=== PATIENT | male | born 1990 | race Two or more races ===

== ENCOUNTER 2019-05-09 15:26 | Emergency (ER) | payer SELFPAY ==
[~2019-05-09] VITALS: Ht 182.9 cm; Wt 79.4 kg
[2019-05-09] MEDS ORDERED: UNOBMED (15:30)
[2019-05-09] MEDS ORDERED: DiphenhydrAMINE 50mg/ml Inj IVP ONE (15:30)
[2019-05-09] MEDS ORDERED: LORazepam Inj 2mg/ml 1ml IV ONE (15:30)
--- NOTE | 2019-05-09 15:30 | NUR ---
ED Nurse Note: Patient brought in by ambulance from [facility], per EMS patient was found in [employer] store, patient sniffed powder of crystal meth, and unknown powder and THC. upon arrival patient is alert awake x3, name, place, purpose, ambulatory steady gait, breathig unlabored and even, patient placed on a hospital gown and equipment monitor phototypesetting, patient sinus tach noted. patient at this time reports that he is "claustrophobic" and "too much patients and beeping sound" in the ED, patient reports he wants to leave. Dr. Ballard notified.
--- NOTE | 2019-05-09 15:35 | NUR ---
ED Nurse Note: DR. Ballard by the bedside assessing patient.
--- NOTE | 2019-05-09 15:37 | Emergency Room Report ---
History of Present Illness General Chief Complaint: Substance Abuse Source: Patient, EMS Present Illness HPI 28-year-old male history of polysubstance abuse history of methamphetamine abuse comes in for feeling tired after methamphetamine use, severity is moderate , constant symptoms are aggravated by meth use, alleviated by not utilizing meth , he denies any chest pain or shortness of breath patient presents for evaluation Allergies: Coded Allergies: UNABLE TO ASSESS (Unverified , 05/09/19) PT IS CONFUSED Patient History Past Medical History: see triage record Reviewed Nursing Documentation: PMH: Agreed; PSxH: Agreed Review of Systems All Other Systems: negative except mentioned in HPI Physical Exam Vital Signs Date Time Temp Pulse Resp B/P (MAP) Pulse Ox O2 Delivery O2 Flow Rate FiO2 05/09/19 15:22 97 05/09/19 15:22 98.1 128 17 142/94 (110) Room Air Sp02 EP Interpretation: reviewed, normal General Appearance: well appearing, no apparent distress, alert Head: normocephalic, atraumatic Eyes: bilateral eye PERRL, bilateral eye EOMI ENT: uvula midline, moist mucus membranes Neck: supple, thyroid normal, supple/symm/no masses Respiratory: lungs clear, no respiratory distress, no retraction, no accessory muscle use Cardiovascular #1: normal peripheral pulses, no edema, no gallop, no murmur, tachycardia Gastrointestinal: non tender, soft, no guarding, no rebound Musculoskeletal: normal inspection Neurologic: alert, oriented x3 Psychiatric: anxious Skin: no rash, warm/dry Medical Decision Making Diagnostic Impression: Primary Impression: Substance abuse Additional Impression: Methamphetamine abuse ER Course Patient presents with methamphetamine use, tachycardia, patient is back to baseline The patient has requested to leave the ED against medical advice. The patient reason(s) for leaving include, but are not limited to, the following: did not give a reason. I believe this patient is of sound mind and competent to refuse medical care. The patient is responding and asking questions appropriately. The patient is oriented to person, place and time. The patient is not psychotic, delusional, suicidal, homicidal or hallucinating. The patient demonstrates a normal mental capacity to make decisions regarding their healthcare. The patient is clinically sober and does not appear to be under the influence of any illicit drugs at this time. The patient has been advised of the risks, in layman terms, of leaving AMA which include, but are not limited to , coma, permanent disability, loss of current lifestyle, delay in diagnosis. Alternatives have been offered - the patient remains steadfast in their wish to leave. The patient has been advised that should they change their mind they are welcome to return to this hospital, or any other, at any time. The patient understands that in no way does an AMA discharge mean that I do not want them to have the best medical care available. To this end, I have provided appropriate prescriptions, referrals, and discharge instructions. The patient did sign AMA paperwork. The above discussion was witnessed by another member of staff. Last Vital Signs Date Time Temp Pulse Resp B/P (MAP) Pulse Ox O2 Delivery O2 Flow Rate FiO2 05/09/19 15:22 98.1 128 17 142/94 (110) 95 Room Air Disposition: AGAINST MEDICAL ADVICE Condition: Stable Referrals: [facility] Patient Instructions: Stimulant Use Disorder-Methamphetamines Additional Instructions: The patient was provided with discharge instructions, notified to follow-up with a primary care doctor and or specialist in the next 24-48 hours, and to return to the ED if they have worsening of their symptoms. Please note that this report is being documented using [employer] technology. This can lead to erroneous entry secondary to incorrect interpretation by the dictating instrument. Mitch Ballard MD May 09, 2019 15:37
[2019-05-09 15:45] VITALS: BP 156/99
--- NOTE | 2019-05-09 15:45 | NUR ---
AMA: SEE AMA FORM. patient signed AMA form despite RN and MD explanation of the risk of leaving hospital against medical advice, patient insisted to leave hospital and signed AMA paper. RN/MD offered patient different bed/room in the mean time, but patient declined and left. patient declined to give urine sample, patient declined IV access and blood work. patient ambulated out of ED steady gait with all of his belongings.
== END 2019-05-09 15:45 | disposition left against medical advice (07) ==
LOC: EDBD 15:26 → EMR 15:42
DX: F15.10 Other stimulant abuse, uncomplicated (principal)
CPT/HCPCS: 99283